=== PATIENT | male | born 1945 | race Asian ===

== ENCOUNTER 2018-02-12 17:03 | Inpatient (IN) | payer OTHER, MEDICARE ==
[2018-02-12] MEDS: SOD CHLORIDE 0.9% 600 ML IV (20:21)
[2018-02-12 20:22] LABS: ADD MAN DIFF? NO
[2018-02-12 20:23] LABS: BASOPHIL # 0.1 10^3/ul (0.0-0.1); BASOPHILS % 0.7 % (0.0-2.0); EOSINOPHILS % 0.3 % (0.0-7.0); HEMATOCRIT 39.8 % (42.0-52.0); HEMOGLOBIN 13.1 g/dl (14.0-18.0); LYMPHOCYTES # 2.1 10^3/ul (0.8-2.9); LYMPHOCYTES % 18.5 % (15.0-51.0); MEAN CORPUSCULAR HEMOGLOBIN 28.2 pg (29.0-33.0); MEAN CORPUSCULAR HGB CONC 32.9 g/dl (32.0-37.0); MEAN CORPUSCULAR VOLUME 85.8 fl (82.0-101.0); MEAN PLATELET VOLUME 12.4 fl (7.4-10.4); MONOCYTE # 0.9 10^3/ul (0.3-0.9); MONOCYTES % 7.4 % (0.0-11.0); NEUTROPHIL # 8.4 10^3/ul (1.6-7.5); NEUTROPHILS % 72.8 % (39.0-77.0); PLATELET COUNT 172 10^3/UL (140-415); RED BLOOD COUNT 4.64 10^6/ul (4.70-6.10); RED CELL DISTRIBUTION WIDTH 11.5 % (11.5-14.5)
[2018-02-12 20:23] LABS: WHITE BLOOD COUNT 11.5 10^3/ul (4.8-10.8)
[2018-02-12 20:30] LABS: ADD UMIC YES; UR ASCORBIC ACID NEGATIVE (NEGATIVE); UR BILIRUBIN (Dip) NEGATIVE (NEGATIVE); UR BLOOD (Dip) 1+ mg/dL (NEGATIVE); UR CLARITY CLEAR (CLEAR); UR COLOR YELLOW (YELLOW); UR GLUCOSE (Dip) NEGATIVE (NEGATIVE); UR KETONES (Dip) NEGATIVE (NEGATIVE); UR LEUKOCYTE ESTERASE (Dip) NEGATIVE Leu/ul (NEGATIVE); UR MUCUS FEW /HPF (NONE SEEN); UR NITRITE (Dip) NEGATIVE (NEGATIVE); UR RBC 4 /HPF (0-5); UR SPECIFIC GRAVITY (Dip) 1.019 (1.003-1.030); UR TOTAL PROTEIN (Dip) 1+ mg/dl (NEGATIVE); UR UROBILINOGEN (Dip) 1+ mg/dL (NEGATIVE); UR WBC 0 /HPF (0-5)
[2018-02-12 20:34] LABS: HEMOGLOBIN A1C 7.1 % (0-5.9)
[2018-02-12 20:44] LABS: INR 0.99; PROTIME 13.2 Sec (11.9-14.9)
[2018-02-12 20:47] LABS: ALANINE AMINOTRANSFERASE 35 IU/L (13-69); ALBUMIN 4.1 g/dl (3.3-4.9); ALKALINE PHOSPHATASE 61 IU/L (42-121); ANION GAP 14 (5-13); ASPARTATE AMINO TRANSFERASE 25 IU/L (15-46); BILIRUBIN,INDIRECT 0.7 mg/dl (0-1.1); BILIRUBIN,TOTAL 0.7 mg/dl (0.2-1.3); BLOOD UREA NITROGEN 20 mg/dl (7-20); CARBON DIOXIDE 24 mmol/L (21-31); CHLORIDE 95 mmol/L (97-110); CREATININE 1.32 mg/dl (0.61-1.24); GLUCOSE 191 mg/dl (70-220); MAGNESIUM 1.3 mg/dl (1.7-2.5); PHOSPHORUS 3.8 mg/dl (2.5-4.9); POTASSIUM 4.6 mmol/L (3.5-5.1); SODIUM 133 mmol/L (135-144); TOTAL PROTEIN 7.5 g/dl (6.1-8.1)
[2018-02-12 20:47] LABS: DIGOXIN 0.9 ng/ml (1.0-2.0)
[2018-02-12 20:56] LABS: TROPONIN-I 0.017 ng/ml (0.000-0.120)
[2018-02-12] MEDS ORDERED: DEXTROSE 50% 50 ML SYRINGE IV ×2 (23:00)
[2018-02-12] MEDS ORDERED: hydrALAzine 20 MG INJ IV (23:00)
[2018-02-12] MEDS ORDERED: GLUCOSE GEL 15 GRAM TUBE BUCCAL (23:00)
[2018-02-12] MEDS ORDERED: GLUCOSE GEL 15 GRAM TUBE PO ×2 (23:00)
[2018-02-12] MEDS ORDERED: GLUCAGON 1 MG INJ IM (23:00)
[2018-02-12] MEDS ORDERED: ONDANSETRON 4 MG INJ IV ×2 (23:00)
[2018-02-12] MEDS ORDERED: NACL 0.9% 3 ML SYG IV (23:00)
[2018-02-12] MEDS ORDERED: ACETAMINOPHEN 325 MG TAB PO (23:00)
[2018-02-12] MEDS ORDERED: DOCUSATE SODIUM 100 MG CAP PO (23:00)
[2018-02-12 23:36] LABS: MODE ROOM AIR; Sample Type Blood venous; Site VENOUS LINE; Venous COHb 0 %; Venous Fraction OxyHgb 27.6 %; Venous Oxygen Sat 27.9 mmHG (55.0-75.0); Venous Total Hemglobin 11.3 g/dl
[2018-02-12] MEDS: ASPIRIN 81 MG TAB PO (23:38)
[2018-02-13] MEDS: ACCU-CHEK XX (02:00)
[2018-02-13] MEDS ORDERED: HEPARIN 5,000 UNIT/0.5 ML VIAL ×2 (05:47→15:26)
[2018-02-13] MEDS: MAGNESIUM SULFATE 2 GM/50 ML 50 ML IVPB (05:53)
[2018-02-13 06:11] LABS: ADD MAN DIFF? NO
[2018-02-13 06:16] LABS: BASOPHIL # 0.1 10^3/ul (0.0-0.1); BASOPHILS % 0.6 % (0.0-2.0); EOSINOPHILS % 0.2 % (0.0-7.0); HEMATOCRIT 36.3 % (42.0-52.0); HEMOGLOBIN 12.2 g/dl (14.0-18.0); LYMPHOCYTES # 1.6 10^3/ul (0.8-2.9); LYMPHOCYTES % 14.8 % (15.0-51.0); MEAN CORPUSCULAR HEMOGLOBIN 28.2 pg (29.0-33.0); MEAN CORPUSCULAR HGB CONC 33.6 g/dl (32.0-37.0); MEAN CORPUSCULAR VOLUME 83.8 fl (82.0-101.0); MEAN PLATELET VOLUME 12.2 fl (7.4-10.4); MONOCYTE # 0.6 10^3/ul (0.3-0.9); MONOCYTES % 5.7 % (0.0-11.0); NEUTROPHIL # 8.7 10^3/ul (1.6-7.5); NEUTROPHILS % 78.2 % (39.0-77.0); PLATELET COUNT 155 10^3/UL (140-415); RED BLOOD COUNT 4.33 10^6/ul (4.70-6.10); RED CELL DISTRIBUTION WIDTH 11.6 % (11.5-14.5)
[2018-02-13 06:16] LABS: WHITE BLOOD COUNT 11.1 10^3/ul (4.8-10.8)
[2018-02-13] MEDS: HEPARIN SODIUM 5,000 UNIT/ML VIAL SC ×2 (06:30→15:36)
[2018-02-13 06:36] LABS: ALANINE AMINOTRANSFERASE 31 IU/L (13-69); ALBUMIN 3.7 g/dl (3.3-4.9); ALBUMIN/GLOBULIN RATIO 1.12; ALKALINE PHOSPHATASE 62 IU/L (42-121); ANION GAP 11 (5-13); ASPARTATE AMINO TRANSFERASE 22 IU/L (15-46); BLOOD UREA NITROGEN 17 mg/dl (7-20); CALCIUM 9.6 mg/dl (8.4-10.2); CARBON DIOXIDE 26 mmol/L (21-31); CHLORIDE 98 mmol/L (97-110); CHOL/HDL RATIO 3.3 RATIO; CHOLESTEROL 91 mg/dl (100-200); CREATININE 1.01 mg/dl (0.61-1.24); GLUCOSE 186 mg/dl (70-220); HDL CHOLESTEROL 27 mg/dl (31-75); LDL CHOLESTEROL,CALCULATED 49 mg/dl; POTASSIUM 3.9 mmol/L (3.5-5.1); SODIUM 135 mmol/L (135-144); TRIGLYCERIDES 76 mg/dl (0-149)
[2018-02-13 06:38] LABS: HEMOGLOBIN A1C 6.9 % (0-5.9)
[2018-02-13] MEDS: HALOPERIDOL 5 MG INJ IV (07:06)
[2018-02-13] MEDS: INSULIN ASPART [NOVOLOG] 3 ML PEN SC ×4 (08:25→22:03)
[2018-02-13] MEDS ORDERED: NON-FORMULARY/PATIENT OWN MED (Digoxin* (Digitek*) 0.125 MG) PO (09:00)
[2018-02-13] MEDS: ASPIRIN 81 MG TAB PO (09:44)
[2018-02-13] MEDS: METOPROLOL 50 MG TAB PO ×2 (10:04→22:01)
[2018-02-13] MEDS: DIGOXIN 0.125 MG TAB PO (12:27)
[2018-02-13] MEDS: HYDROCHLOROTHIAZIDE 12.5 MG CAP PO (18:40)
[2018-02-13] MEDS: DILTIAZEM (CD) 120 MG CAP PO (18:40)
[2018-02-13] MEDS: SOD CHLORIDE 0.9% 1,000 ML IV (20:25)
[2018-02-13] MEDS: ATORVASTATIN 40 MG TAB PO (22:00)
[2018-02-14] MEDS: ACCU-CHEK XX ×2 (01:17→20:36)
[2018-02-14] MEDS: SOD CHLORIDE 0.9% 1,000 ML IV ×2 (06:15→15:30)
[2018-02-14] MEDS: INSULIN ASPART [NOVOLOG] 3 ML PEN SC ×4 (07:35→20:36)
[2018-02-14] MEDS: METOPROLOL 50 MG TAB PO ×2 (09:00→20:34)
[2018-02-14] MEDS: DILTIAZEM (CD) 120 MG CAP PO (09:00)
[2018-02-14] MEDS: HYDROCHLOROTHIAZIDE 12.5 MG CAP PO (10:12)
[2018-02-14] MEDS ORDERED: MISCELLANEOUS IV SOLUTION 1,000 ML IV (12:00)
[2018-02-14] MEDS: LIDOCAINE 1% (MPF) 5 ML VIAL SC ×2 (12:30→13:00)
[2018-02-14 12:43] LABS: ANION GAP 11 (5-13); BLOOD UREA NITROGEN 17 mg/dl (7-20); CALCIUM 9.3 mg/dl (8.4-10.2); CARBON DIOXIDE 24 mmol/L (21-31); CHLORIDE 99 mmol/L (97-110); CREATININE 0.96 mg/dl (0.61-1.24); GLUCOSE 194 mg/dl (70-220); POTASSIUM 3.5 mmol/L (3.5-5.1); SODIUM 134 mmol/L (135-144)
[2018-02-14] MEDS: ACETAMINOPHEN 325 MG TAB PO ×2 (13:13→22:19)
[2018-02-14] MEDS: NACL 3% 500 ML IV (15:15)
[2018-02-14 15:55] LABS: ANION GAP 11 (5-13); BLOOD UREA NITROGEN 15 mg/dl (7-20); CARBON DIOXIDE 25 mmol/L (21-31); CHLORIDE 101 mmol/L (97-110); CREATININE 0.84 mg/dl (0.61-1.24); GLUCOSE 142 mg/dl (70-220); SODIUM 137 mmol/L (135-144)
[2018-02-14 15:57] LABS: POTASSIUM 3.3 mmol/L (3.5-5.1)
[2018-02-14] MEDS: DIGOXIN 0.125 MG TAB PO (16:09)
[2018-02-14] MEDS: POTASSIUM CHLORIDE (SR) 20 MEQ TAB PO (19:31)
[2018-02-14] MEDS: ATORVASTATIN 40 MG TAB PO (20:33)
[2018-02-14 20:41] LABS: ANION GAP 10 (5-13); BLOOD UREA NITROGEN 14 mg/dl (7-20); CARBON DIOXIDE 25 mmol/L (21-31); CHLORIDE 102 mmol/L (97-110); CREATININE 0.84 mg/dl (0.61-1.24); GLUCOSE 179 mg/dl (70-220); POTASSIUM 3.4 mmol/L (3.5-5.1); SODIUM 137 mmol/L (135-144)
[2018-02-15 01:01] LABS: ANION GAP 12 (5-13); BLOOD UREA NITROGEN 14 mg/dl (7-20); CALCIUM 9.7 mg/dl (8.4-10.2); CARBON DIOXIDE 25 mmol/L (21-31); CHLORIDE 100 mmol/L (97-110); CREATININE 0.97 mg/dl (0.61-1.24); GLUCOSE 167 mg/dl (70-220); POTASSIUM 4.1 mmol/L (3.5-5.1); SODIUM 137 mmol/L (135-144)
[2018-02-15] MEDS: SOD CHLORIDE 0.9% 1,000 ML IV ×2 (01:30→16:57)
[2018-02-15] MEDS ORDERED: HALOPERIDOL 5 MG INJ (01:46)
[2018-02-15] MEDS: HALOPERIDOL 5 MG INJ IV (01:53)
[2018-02-15] MEDS ORDERED: LORAZEPAM 2 MG INJ (03:27)
[2018-02-15] MEDS: LORAZEPAM 2 MG INJ IV (03:31)
[2018-02-15 05:36] LABS: ANION GAP 11 (5-13); BLOOD UREA NITROGEN 14 mg/dl (7-20); CALCIUM 9.2 mg/dl (8.4-10.2); CARBON DIOXIDE 23 mmol/L (21-31); CHLORIDE 104 mmol/L (97-110); CREATININE 0.85 mg/dl (0.61-1.24); GLUCOSE 193 mg/dl (70-220); POTASSIUM 3.9 mmol/L (3.5-5.1); SODIUM 138 mmol/L (135-144)
[2018-02-15] MEDS: INSULIN ASPART [NOVOLOG] 3 ML PEN SC ×4 (07:54→20:12)
[2018-02-15 08:59] LABS: ANION GAP 12 (5-13); BLOOD UREA NITROGEN 15 mg/dl (7-20); CALCIUM 9.3 mg/dl (8.4-10.2); CARBON DIOXIDE 25 mmol/L (21-31); CHLORIDE 103 mmol/L (97-110); GLUCOSE 170 mg/dl (70-220); POTASSIUM 3.9 mmol/L (3.5-5.1); SODIUM 140 mmol/L (135-144)
[2018-02-15] MEDS: hydrALAzine 20 MG INJ IV (11:50)
[2018-02-15 12:42] LABS: ANION GAP 10 (5-13); BLOOD UREA NITROGEN 14 mg/dl (7-20); CALCIUM 9.3 mg/dl (8.4-10.2); CARBON DIOXIDE 24 mmol/L (21-31); CHLORIDE 106 mmol/L (97-110); CREATININE 0.95 mg/dl (0.61-1.24); GLUCOSE 150 mg/dl (70-220); POTASSIUM 4.1 mmol/L (3.5-5.1); SODIUM 140 mmol/L (135-144)
[2018-02-15] MEDS: DIGOXIN 0.125 MG TAB PO ×2 (13:00→14:11)
[2018-02-15] MEDS: DILTIAZEM (CD) 120 MG CAP PO (13:04)
[2018-02-15] MEDS: METOPROLOL 50 MG TAB PO ×2 (13:05→20:12)
[2018-02-15 15:47] LABS: ANION GAP 12 (5-13); BLOOD UREA NITROGEN 14 mg/dl (7-20); CALCIUM 9.3 mg/dl (8.4-10.2); CARBON DIOXIDE 20 mmol/L (21-31); CHLORIDE 105 mmol/L (97-110); CREATININE 0.79 mg/dl (0.61-1.24); GLUCOSE 200 mg/dl (70-220); POTASSIUM 3.8 mmol/L (3.5-5.1); SODIUM 137 mmol/L (135-144)
[2018-02-15] MEDS: ATORVASTATIN 40 MG TAB PO (20:12)
[2018-02-15] MEDS: FAMOTIDINE 20 MG TAB PO (20:12)
[2018-02-15] MEDS: ACCU-CHEK XX (20:15)
[2018-02-15 21:13] LABS: ANION GAP 10 (5-13); BLOOD UREA NITROGEN 15 mg/dl (7-20); CALCIUM 9.3 mg/dl (8.4-10.2); CARBON DIOXIDE 23 mmol/L (21-31); CHLORIDE 105 mmol/L (97-110); CREATININE 0.94 mg/dl (0.61-1.24); GLUCOSE 138 mg/dl (70-220); POTASSIUM 3.8 mmol/L (3.5-5.1); SODIUM 138 mmol/L (135-144)
[2018-02-16] MEDS: ACETAMINOPHEN 325 MG TAB PO (00:29)
[2018-02-16] MEDS: SOD CHLORIDE 0.9% 1,000 ML IV ×2 (01:04→22:42)
[2018-02-16] MEDS: LORAZEPAM 2 MG INJ IV ×3 (05:11→18:14)
[2018-02-16 06:08] LABS: ADD MAN DIFF? NO
[2018-02-16 06:10] LABS: BASOPHIL # 0.1 10^3/ul (0.0-0.1); BASOPHILS % 0.8 % (0.0-2.0); EOSINOPHILS # 0.1 10^3/ul (0.0-0.5); EOSINOPHILS % 1.2 % (0.0-7.0); LYMPHOCYTES # 2.7 10^3/ul (0.8-2.9); LYMPHOCYTES % 24.7 % (15.0-51.0); MEAN CORPUSCULAR HEMOGLOBIN 28.4 pg (29.0-33.0); MEAN CORPUSCULAR HGB CONC 34.2 g/dl (32.0-37.0); MEAN CORPUSCULAR VOLUME 83.2 fl (82.0-101.0); MEAN PLATELET VOLUME 12.2 fl (7.4-10.4); MONOCYTE # 1.4 10^3/ul (0.3-0.9); MONOCYTES % 13.1 % (0.0-11.0); NEUTROPHIL # 6.6 10^3/ul (1.6-7.5); NEUTROPHILS % 59.8 % (39.0-77.0); PLATELET COUNT 175 10^3/UL (140-415); RED BLOOD COUNT 4.57 10^6/ul (4.70-6.10); RED CELL DISTRIBUTION WIDTH 11.9 % (11.5-14.5)
[2018-02-16 06:39] LABS: ALANINE AMINOTRANSFERASE 21 IU/L (13-69); ALBUMIN 3.9 g/dl (3.3-4.9); ALBUMIN/GLOBULIN RATIO 1.21; ALKALINE PHOSPHATASE 74 IU/L (42-121); ANION GAP 12 (5-13); ASPARTATE AMINO TRANSFERASE 23 IU/L (15-46); BLOOD UREA NITROGEN 19 mg/dl (7-20); CALCIUM 9.3 mg/dl (8.4-10.2); CARBON DIOXIDE 20 mmol/L (21-31); CHLORIDE 107 mmol/L (97-110); CREATININE 0.88 mg/dl (0.61-1.24); GLUCOSE 165 mg/dl (70-220); POTASSIUM 3.6 mmol/L (3.5-5.1); SODIUM 139 mmol/L (135-144); TOTAL PROTEIN 7.1 g/dl (6.1-8.1)
[2018-02-16 06:49] LABS: MAGNESIUM 1.7 mg/dl (1.7-2.5)
[2018-02-16 06:49] LABS: PHOSPHORUS 3.1 mg/dl (2.5-4.9)
[2018-02-16] MEDS: INSULIN ASPART [NOVOLOG] 3 ML PEN SC ×4 (07:55→21:00)
[2018-02-16] MEDS: POTASSIUM CHLORIDE (SR) 20 MEQ TAB PO (10:03)
[2018-02-16] MEDS: FAMOTIDINE 20 MG TAB PO ×2 (10:03→21:00)
[2018-02-16] MEDS: DILTIAZEM (CD) 120 MG CAP PO (10:04)
[2018-02-16] MEDS: METOPROLOL 50 MG TAB PO ×2 (10:04→21:00)
[2018-02-16] MEDS: MAGNESIUM SULFATE 2 GM/50 ML 50 ML IVPB (10:47)
[2018-02-16] MEDS: DIGOXIN 0.125 MG TAB PO (13:00)
[2018-02-16] MEDS: hydrALAzine 20 MG INJ IV (13:49)
[2018-02-16] MEDS: QUETIAPINE 25 MG TAB PO (21:00)
[2018-02-16] MEDS: ATORVASTATIN 40 MG TAB PO (21:00)
[2018-02-17] MEDS: ACCU-CHEK XX (02:00)
[2018-02-17 06:34] LABS: ANION GAP 14 (5-13); BLOOD UREA NITROGEN 13 mg/dl (7-20); CALCIUM 8.6 mg/dl (8.4-10.2); CARBON DIOXIDE 17 mmol/L (21-31); CHLORIDE 110 mmol/L (97-110); CREATININE 0.76 mg/dl (0.61-1.24); GLUCOSE 170 mg/dl (70-220); POTASSIUM 3.6 mmol/L (3.5-5.1); SODIUM 141 mmol/L (135-144)
[2018-02-17] MEDS: SOD CHLORIDE 0.9% 1,000 ML IV ×4 (07:49→21:27)
[2018-02-17] MEDS: METOPROLOL 50 MG TAB PO (08:22)
[2018-02-17] MEDS: DILTIAZEM (CD) 120 MG CAP PO (08:22)
[2018-02-17] MEDS: FAMOTIDINE 20 MG TAB PO (08:22)
[2018-02-17 08:26] LABS: MAGNESIUM 1.9 mg/dl (1.7-2.5)
[2018-02-17] MEDS: INSULIN ASPART [NOVOLOG] 3 ML PEN SC ×4 (08:27→21:00)
[2018-02-17] MEDS: DIGOXIN 500 MCG INJ IV (12:53)
[2018-02-17] MEDS: METOPROLOL 5 MG INJ IV ×2 (14:11→21:31)
[2018-02-17] MEDS: hydrALAzine 20 MG INJ IV (15:27)
[2018-02-17] MEDS: FAMOTIDINE 20 MG INJ IV (21:00)
[2018-02-17] MEDS: QUETIAPINE 25 MG TAB PO (21:27)
[2018-02-17] MEDS: ATORVASTATIN 40 MG TAB PO (21:27)
[2018-02-18] MEDS: ACCU-CHEK XX (02:00)
[2018-02-18] MEDS: METOPROLOL 5 MG INJ IV ×3 (06:00→21:47)
[2018-02-18 06:17] LABS: ADD MAN DIFF? NO
[2018-02-18 06:29] LABS: WHITE BLOOD COUNT 12.1 10^3/ul (4.8-10.8)
[2018-02-18 06:29] LABS: BASOPHILS % 0.3 % (0.0-2.0); HEMATOCRIT 39.4 % (42.0-52.0); HEMOGLOBIN 13.1 g/dl (14.0-18.0); LYMPHOCYTES # 0.8 10^3/ul (0.8-2.9); LYMPHOCYTES % 6.7 % (15.0-51.0); MEAN CORPUSCULAR HEMOGLOBIN 28.1 pg (29.0-33.0); MEAN CORPUSCULAR HGB CONC 33.2 g/dl (32.0-37.0); MEAN CORPUSCULAR VOLUME 84.5 fl (82.0-101.0); MEAN PLATELET VOLUME 12.4 fl (7.4-10.4); MONOCYTE # 1.1 10^3/ul (0.3-0.9); NEUTROPHIL # 10.1 10^3/ul (1.6-7.5); NEUTROPHILS % 83.5 % (39.0-77.0); PLATELET COUNT 194 10^3/UL (140-415); RED BLOOD COUNT 4.66 10^6/ul (4.70-6.10); RED CELL DISTRIBUTION WIDTH 11.9 % (11.5-14.5)
[2018-02-18 06:42] LABS: PHOSPHORUS 3.3 mg/dl (2.5-4.9)
[2018-02-18 06:42] LABS: MAGNESIUM 1.9 mg/dl (1.7-2.5)
[2018-02-18 06:44] LABS: ANION GAP 14 (5-13); BLOOD UREA NITROGEN 15 mg/dl (7-20); CALCIUM 9.1 mg/dl (8.4-10.2); CARBON DIOXIDE 16 mmol/L (21-31); CHLORIDE 113 mmol/L (97-110); CREATININE 0.76 mg/dl (0.61-1.24); GLUCOSE 185 mg/dl (70-220); SODIUM 143 mmol/L (135-144)
[2018-02-18] MEDS: INSULIN ASPART [NOVOLOG] 3 ML PEN SC ×4 (09:06→21:00)
[2018-02-18] MEDS: FAMOTIDINE 20 MG INJ IV ×2 (09:10→20:24)
[2018-02-18] MEDS: SOD CHLORIDE 0.9% 1,000 ML IV (09:14)
[2018-02-18] MEDS: QUETIAPINE 25 MG TAB PO ×2 (09:30→21:00)
[2018-02-18] MEDS: DILTIAZEM-D5W 125MG/125ML DRIP 125 ML IV (11:05)
[2018-02-18] MEDS: DIGOXIN 500 MCG INJ IV (12:45)
[2018-02-18] MEDS: LORAZEPAM 2 MG INJ IV ×2 (18:04→20:08)
[2018-02-18] MEDS: ATORVASTATIN 40 MG TAB PO (21:00)
[2018-02-18] MEDS: hydrALAzine 20 MG INJ IV (22:25)
[2018-02-19] MEDS: SOD CHLORIDE 0.9% 1,000 ML IV ×2 (00:51→12:26)
[2018-02-19] MEDS: ACCU-CHEK XX (02:00)
[2018-02-19] MEDS: METOPROLOL 5 MG INJ IV ×3 (05:22→21:40)
[2018-02-19] MEDS: DILTIAZEM-D5W 125MG/125ML DRIP 125 ML IV (05:25)
[2018-02-19 06:31] LABS: ADD MAN DIFF? NO
[2018-02-19 06:38] LABS: BASOPHILS % 0.2 % (0.0-2.0); HEMATOCRIT 40.3 % (42.0-52.0); HEMOGLOBIN 13.5 g/dl (14.0-18.0); LYMPHOCYTES # 0.6 10^3/ul (0.8-2.9); MEAN CORPUSCULAR HEMOGLOBIN 28.3 pg (29.0-33.0); MEAN CORPUSCULAR HGB CONC 33.5 g/dl (32.0-37.0); MEAN CORPUSCULAR VOLUME 84.5 fl (82.0-101.0); MEAN PLATELET VOLUME 12.1 fl (7.4-10.4); MONOCYTES % 7.9 % (0.0-11.0); NEUTROPHIL # 10.9 10^3/ul (1.6-7.5); NEUTROPHILS % 86.4 % (39.0-77.0); PLATELET COUNT 218 10^3/UL (140-415); RED BLOOD COUNT 4.77 10^6/ul (4.70-6.10); RED CELL DISTRIBUTION WIDTH 12.4 % (11.5-14.5)
[2018-02-19 06:38] LABS: WHITE BLOOD COUNT 12.7 10^3/ul (4.8-10.8)
[2018-02-19 07:13] LABS: PHOSPHORUS 3.7 mg/dl (2.5-4.9)
[2018-02-19 07:14] LABS: ANION GAP 15 (5-13); BLOOD UREA NITROGEN 18 mg/dl (7-20); CALCIUM 9.2 mg/dl (8.4-10.2); CARBON DIOXIDE 18 mmol/L (21-31); CHLORIDE 114 mmol/L (97-110); CREATININE 0.74 mg/dl (0.61-1.24); GLUCOSE 212 mg/dl (70-220); POTASSIUM 3.8 mmol/L (3.5-5.1); SODIUM 147 mmol/L (135-144)
[2018-02-19] MEDS: FAMOTIDINE 20 MG INJ IV ×2 (08:31→21:37)
[2018-02-19] MEDS: INSULIN ASPART [NOVOLOG] 3 ML PEN SC ×4 (08:31→22:06)
[2018-02-19] MEDS: QUETIAPINE 25 MG TAB PO ×3 (08:39→21:00)
[2018-02-19] MEDS: DIGOXIN 500 MCG INJ IV (12:20)
[2018-02-19] MEDS: ATORVASTATIN 40 MG TAB PO (21:00)
[2018-02-19] MEDS: hydrALAzine 20 MG INJ IV (23:27)
[2018-02-20] MEDS: ACCU-CHEK XX (02:00)
[2018-02-20] MEDS: SOD CHLORIDE 0.9% 1,000 ML IV ×2 (02:33→17:33)
[2018-02-20] MEDS: hydrALAzine 20 MG INJ IV (03:26)
[2018-02-20] MEDS: METOPROLOL 5 MG INJ IV ×3 (05:42→22:42)
[2018-02-20] MEDS: DILTIAZEM-D5W 125MG/125ML DRIP 125 ML IV (05:54)
[2018-02-20 07:33] LABS: ADD MAN DIFF? NO
[2018-02-20 07:44] LABS: WHITE BLOOD COUNT 13.4 10^3/ul (4.8-10.8)
[2018-02-20 07:44] LABS: BASOPHILS % 0.2 % (0.0-2.0); LYMPHOCYTES # 1.1 10^3/ul (0.8-2.9); LYMPHOCYTES % 7.9 % (15.0-51.0); MEAN CORPUSCULAR HGB CONC 33.3 g/dl (32.0-37.0); MEAN PLATELET VOLUME 11.8 fl (7.4-10.4); MONOCYTE # 1.3 10^3/ul (0.3-0.9); MONOCYTES % 9.6 % (0.0-11.0); NEUTROPHILS % 81.9 % (39.0-77.0); PLATELET COUNT 273 10^3/UL (140-415); RED CELL DISTRIBUTION WIDTH 12.3 % (11.5-14.5)
[2018-02-20 07:55] LABS: PHOSPHORUS 2.5 mg/dl (2.5-4.9)
[2018-02-20 07:55] LABS: MAGNESIUM 2.1 mg/dl (1.7-2.5)
[2018-02-20] MEDS: INSULIN ASPART [NOVOLOG] 3 ML PEN SC ×4 (07:57→20:03)
[2018-02-20 07:59] LABS: ANION GAP 14 (5-13); BLOOD UREA NITROGEN 21 mg/dl (7-20); CARBON DIOXIDE 17 mmol/L (21-31); CHLORIDE 121 mmol/L (97-110); CREATININE 0.79 mg/dl (0.61-1.24); GLUCOSE 258 mg/dl (70-220); POTASSIUM 3.3 mmol/L (3.5-5.1); SODIUM 152 mmol/L (135-144)
[2018-02-20] MEDS: FAMOTIDINE 20 MG INJ IV ×2 (08:31→20:04)
[2018-02-20] MEDS: QUETIAPINE 25 MG TAB PO ×2 (08:31→20:03)
[2018-02-20] MEDS: LORAZEPAM 2 MG INJ IV ×2 (11:58→14:34)
[2018-02-20] MEDS: DIGOXIN 500 MCG INJ IV (12:04)
[2018-02-20] MEDS: POTASSIUM CHLORIDE 20 MEQ POWDER FOR ORAL SOLN NGT (17:54)
[2018-02-20] MEDS: ATORVASTATIN 40 MG TAB PO (20:03)
[2018-02-21] MEDS: ACCU-CHEK XX (02:00)
[2018-02-21] MEDS ORDERED: PHENYLephrine 20MG IN 250 ML 250 ML (05:59)
[2018-02-21] MEDS: METOPROLOL 5 MG INJ IV ×3 (06:00→21:50)
[2018-02-21] MEDS ORDERED: NORepinephrine 8MG/250 ML (PMX 250 ML IV (06:00)
[2018-02-21] MEDS: SOD CHLORIDE 0.9% 1,000 ML IV ×3 (06:15→19:10)
[2018-02-21] MEDS: PROPOFOL 100 ML IV ×4 (06:29→21:40)
[2018-02-21 06:55] LABS: ADD MAN DIFF? NO
[2018-02-21] MEDS ORDERED: SUCCINYLCHOLINE CHLORIDE 100 MG/5 ML SYG IV (07:00)
[2018-02-21] MEDS ORDERED: ETOMIDATE 20 MG INJ (07:00)
[2018-02-21] MEDS ORDERED: EPINEPHrine 0.1 MG/ML SYG (07:00)
[2018-02-21 07:02] LABS: BASOPHILS % 0.2 % (0.0-2.0); HEMATOCRIT 42.5 % (42.0-52.0); HEMOGLOBIN 13.6 g/dl (14.0-18.0); LYMPHOCYTES # 0.7 10^3/ul (0.8-2.9); LYMPHOCYTES % 5.5 % (15.0-51.0); MEAN CORPUSCULAR HEMOGLOBIN 28.5 pg (29.0-33.0); MEAN CORPUSCULAR VOLUME 89.1 fl (82.0-101.0); MEAN PLATELET VOLUME 11.8 fl (7.4-10.4); MONOCYTES % 7.7 % (0.0-11.0); NEUTROPHIL # 10.8 10^3/ul (1.6-7.5); NEUTROPHILS % 85.7 % (39.0-77.0); PLATELET COUNT 231 10^3/UL (140-415); RED BLOOD COUNT 4.77 10^6/ul (4.70-6.10); RED CELL DISTRIBUTION WIDTH 13.1 % (11.5-14.5)
[2018-02-21 07:02] LABS: WHITE BLOOD COUNT 12.6 10^3/ul (4.8-10.8)
[2018-02-21 07:55] LABS: ANION GAP 17 (5-13); BLOOD UREA NITROGEN 38 mg/dl (7-20); CALCIUM 9.2 mg/dl (8.4-10.2); CARBON DIOXIDE 15 mmol/L (21-31); CHLORIDE 121 mmol/L (97-110); CREATININE 1.93 mg/dl (0.61-1.24); GLUCOSE 349 mg/dl (70-220); POTASSIUM 4.1 mmol/L (3.5-5.1); SODIUM 153 mmol/L (135-144)
[2018-02-21 08:08] LABS: AADO2 Arterial 363.8 mmHg (7.0-24.0); Allen Test ACCEPTAB; Arterial Base Excess -9.1 mmol/L (-3.0-3); Arterial Blood Gas Oxygen Sat 99.4 mmHG (95.0-100.0); Arterial COHb 0.3 % (0.0-3.0); Arterial Fraction of Oxyhgb 98.7 % (93.0-99.0); Arterial MetHb 0.4 % (0.0-1.5); Arterial Total Hemglobin 14.1 g/dl (12.0-18.0); Arterial pCO2 32.5 mmhg (35-45); MODE VENT - AC; Site Right Radial
[2018-02-21] MEDS: INSULIN ASPART [NOVOLOG] 3 ML PEN SC ×4 (08:15→21:15)
[2018-02-21] MEDS: PHENYLephrine 20MG IN 250 ML 250 ML IV (08:26)
[2018-02-21] MEDS: FAMOTIDINE 20 MG INJ IV ×2 (08:32→21:09)
[2018-02-21] MEDS: QUETIAPINE 25 MG TAB PO (08:45)
[2018-02-21 08:48] LABS: PHOSPHORUS 6.5 mg/dl (2.5-4.9)
[2018-02-21 08:48] LABS: MAGNESIUM 2.5 mg/dl (1.7-2.5)
[2018-02-21] MEDS: DILTIAZEM-D5W 125MG/125ML DRIP 125 ML IV (09:05)
[2018-02-21 09:34] LABS: BAND NEUTROPHILS #M 0.3 10^3/ul (0.0-0.6); BAND NEUTROPHILS % (M) 3 % (0-4); BURR CELLS 3+ (0-0); LYMPHOCYTES % (M) 8 % (15-51); MONOCYTE #M 0.6 10^3/ul (0.3-0.9); MONOCYTES % (M) 5 % (0-11); PLATELET ESTIMATE NORMAL; POIKILOCYTOSIS 3+ (0-0); SEG NEUT #M 10.6 10^3/ul (1.6-7.5); SEGMENTED NEUTROPHILS (M) % 84 % (39-77)
[2018-02-21 09:56] LABS: DIGOXIN 0.7 ng/ml (1.0-2.0)
[2018-02-21] MEDS: PHENYLephrine 40 MG in DEXTROSE 5% 496 ML IV ×2 (10:26→19:40)
[2018-02-21] MEDS: DIGOXIN 500 MCG INJ IV (13:49)
[2018-02-21 17:34] LABS: ANION GAP 8 (5-13); BLOOD UREA NITROGEN 42 mg/dl (7-20); CALCIUM 9.1 mg/dl (8.4-10.2); CARBON DIOXIDE 18 mmol/L (21-31); CHLORIDE 125 mmol/L (97-110); CREATININE 1.67 mg/dl (0.61-1.24); GLUCOSE 149 mg/dl (70-220); POTASSIUM 3.3 mmol/L (3.5-5.1); SODIUM 151 mmol/L (135-144)
[2018-02-21] MEDS: POTASSIUM CHLORIDE 20 MEQ POWDER FOR ORAL SOLN NGT (18:07)
[2018-02-21] MEDS: LIDOCAINE 1% (MPF) 5 ML VIAL SC (19:22)
[2018-02-21] MEDS: ATORVASTATIN 40 MG TAB PO (21:09)
[2018-02-22] MEDS: INSULIN ASPART [NOVOLOG] 3 ML PEN SC ×6 (01:23→23:38)
[2018-02-22] MEDS: PROPOFOL 100 ML IV (02:54)
[2018-02-22] MEDS: PHENYLephrine 40 MG in DEXTROSE 5% 496 ML IV (03:29)
[2018-02-22 05:12] LABS: ADD MAN DIFF? NO
[2018-02-22 05:19] LABS: WHITE BLOOD COUNT 10.9 10^3/ul (4.8-10.8)
[2018-02-22 05:19] LABS: BASOPHILS % 0.2 % (0.0-2.0); EOSINOPHILS % 0.1 % (0.0-7.0); HEMATOCRIT 36.3 % (42.0-52.0); HEMOGLOBIN 11.7 g/dl (14.0-18.0); LYMPHOCYTES # 1.4 10^3/ul (0.8-2.9); LYMPHOCYTES % 12.4 % (15.0-51.0); MEAN CORPUSCULAR HEMOGLOBIN 28.1 pg (29.0-33.0); MEAN CORPUSCULAR HGB CONC 32.2 g/dl (32.0-37.0); MEAN CORPUSCULAR VOLUME 87.3 fl (82.0-101.0); MONOCYTE # 0.9 10^3/ul (0.3-0.9); MONOCYTES % 7.8 % (0.0-11.0); NEUTROPHIL # 8.7 10^3/ul (1.6-7.5); NEUTROPHILS % 79.2 % (39.0-77.0); PLATELET COUNT 225 10^3/UL (140-415); POSITIVE DIFF @See below; RED BLOOD COUNT 4.16 10^6/ul (4.70-6.10)
[2018-02-22] MEDS: METOPROLOL 5 MG INJ IV ×3 (05:36→21:04)
[2018-02-22 05:44] LABS: ANION GAP 8 (5-13); BLOOD UREA NITROGEN 36 mg/dl (7-20); CALCIUM 8.8 mg/dl (8.4-10.2); CARBON DIOXIDE 17 mmol/L (21-31); CHLORIDE 124 mmol/L (97-110); CREATININE 1.52 mg/dl (0.61-1.24); GLUCOSE 144 mg/dl (70-220); POTASSIUM 3.7 mmol/L (3.5-5.1); SODIUM 149 mmol/L (135-144)
[2018-02-22 06:04] LABS: MAGNESIUM 2.1 mg/dl (1.7-2.5)
[2018-02-22 06:04] LABS: PHOSPHORUS 2.3 mg/dl (2.5-4.9)
[2018-02-22] MEDS: SOD CHLORIDE 0.9% 1,000 ML IV ×2 (07:41→20:54)
[2018-02-22] MEDS: DILTIAZEM-D5W 125MG/125ML DRIP 125 ML IV (09:30)
[2018-02-22] MEDS: FAMOTIDINE 20 MG INJ IV ×2 (09:36→20:13)
[2018-02-22 09:55] LABS: ANISOCYTOSIS 1+ (0-0); BAND NEUTROPHILS % (M) 19 % (0-4); BURR CELLS 2+ (0-0); GIANT THROMBO% (M) 1 % (0-0); LYMPHOCYTES #M 2.6 10^3/ul (0.8-2.9); LYMPHOCYTES % (M) 24 % (15-51); MICROCYTOSIS 1+ (0-0); MONOCYTE #M 0.5 10^3/ul (0.3-0.9); MONOCYTES % (M) 5 % (0-11); PLATELET ESTIMATE NORMAL; POIKILOCYTOSIS 3+ (0-0); SEG NEUT #M 5.9 10^3/ul (1.6-7.5); SEGMENTED NEUTROPHILS (M) % 52 % (39-77); SMUDGE%M 18 % (0-0)
[2018-02-22] MEDS: morphine 2 MG INJ IV ×3 (11:19→22:40)
[2018-02-22] MEDS ORDERED: DIGOXIN 500 MCG INJ IV (13:00)
[2018-02-22] MEDS: POTASSIUM CHLORIDE 20 MEQ POWDER FOR ORAL SOLN NGT (13:01)
[2018-02-22] MEDS: DIGOXIN 500 MCG INJ IV ×2 (13:01)
[2018-02-22] MEDS: ATORVASTATIN 40 MG TAB PO (20:13)
[2018-02-22] MEDS: INSULIN GLARGINE [LANTus] (100 UNITS/ML) SYG SC (20:51)
[2018-02-22] MEDS: hydrALAzine 20 MG INJ IV (22:04)
[2018-02-22] MEDS: LORAZEPAM 2 MG INJ IV (23:23)
[2018-02-23] MEDS ORDERED: ACCU-CHEK XX (02:00)
[2018-02-23] MEDS: PROPOFOL 100 ML IV ×2 (04:10→17:32)
[2018-02-23] MEDS: DILTIAZEM-D5W 125MG/125ML DRIP 125 ML IV (04:16)
[2018-02-23 05:03] LABS: ADD MAN DIFF? NO
[2018-02-23 05:06] LABS: WHITE BLOOD COUNT 10.1 10^3/ul (4.8-10.8)
[2018-02-23 05:06] LABS: BASOPHILS % 0.2 % (0.0-2.0); EOSINOPHILS % 0.3 % (0.0-7.0); HEMATOCRIT 37.5 % (42.0-52.0); HEMOGLOBIN 12.4 g/dl (14.0-18.0); LYMPHOCYTES # 1.4 10^3/ul (0.8-2.9); LYMPHOCYTES % 13.6 % (15.0-51.0); MEAN CORPUSCULAR HEMOGLOBIN 28.3 pg (29.0-33.0); MEAN CORPUSCULAR HGB CONC 33.1 g/dl (32.0-37.0); MEAN CORPUSCULAR VOLUME 85.6 fl (82.0-101.0); MEAN PLATELET VOLUME 12.1 fl (7.4-10.4); MONOCYTES % 10.1 % (0.0-11.0); NEUTROPHIL # 7.6 10^3/ul (1.6-7.5); NEUTROPHILS % 75.2 % (39.0-77.0); PLATELET COUNT 176 10^3/UL (140-415); POSITIVE DIFF @See below; RED BLOOD COUNT 4.38 10^6/ul (4.70-6.10); RED CELL DISTRIBUTION WIDTH 12.8 % (11.5-14.5)
[2018-02-23] MEDS: morphine 2 MG INJ IV ×3 (05:31→23:29)
[2018-02-23 05:34] LABS: ANION GAP 7 (5-13); BLOOD UREA NITROGEN 30 mg/dl (7-20); CALCIUM 8.5 mg/dl (8.4-10.2); CARBON DIOXIDE 18 mmol/L (21-31); CHLORIDE 120 mmol/L (97-110); CREATININE 1.11 mg/dl (0.61-1.24); GLUCOSE 237 mg/dl (70-220); POTASSIUM 4.1 mmol/L (3.5-5.1); SODIUM 145 mmol/L (135-144)
[2018-02-23] MEDS: METOPROLOL 5 MG INJ IV ×3 (06:02→21:46)
[2018-02-23] MEDS: INSULIN ASPART [NOVOLOG] 3 ML PEN SC ×6 (06:06→23:55)
[2018-02-23 07:42] LABS: AADO2 Arterial 118.3 mmHg (7.0-24.0); Allen Test ACCEPTAB; Arterial Base Excess -3.4 mmol/L (-3.0-3); Arterial COHb 0.4 % (0.0-3.0); Arterial Fraction of Oxyhgb 94.3 % (93.0-99.0); Arterial HCO3 18.2 mmol/L (22.0-26.0); Arterial MetHb 0.3 % (0.0-1.5); Arterial Total Hemglobin 13.4 g/dl (12.0-18.0); Arterial pCO2 24.5 mmhg (35-45); MODE VENT - AC; Site Right Radial
[2018-02-23] MEDS: FAMOTIDINE 20 MG INJ IV (08:02)
[2018-02-23] MEDS: ACETAMINOPHEN 325 MG TAB PO ×2 (08:06→17:41)
[2018-02-23] MEDS: SOD CHLORIDE 0.9% 1,000 ML IV ×2 (10:21→23:31)
[2018-02-23] MEDS: DILTIAZEM 60 MG TAB NGT ×3 (12:00→23:30)
[2018-02-23] MEDS: DIGOXIN 500 MCG INJ IV (12:41)
[2018-02-23 16:52] LABS: ADD UMIC YES; UR ASCORBIC ACID NEGATIVE (NEGATIVE); UR BACTERIA FEW /HPF (NONE SEEN); UR BILIRUBIN (Dip) NEGATIVE (NEGATIVE); UR BLOOD (Dip) 1+ mg/dL (NEGATIVE); UR CLARITY CLEAR (CLEAR); UR COLOR YELLOW (YELLOW); UR GLUCOSE (Dip) 3+ mg/dL (NEGATIVE); UR KETONES (Dip) NEGATIVE (NEGATIVE); UR LEUKOCYTE ESTERASE (Dip) NEGATIVE Leu/ul (NEGATIVE); UR NITRITE (Dip) NEGATIVE (NEGATIVE); UR RBC 38 /HPF (0-5); UR SPECIFIC GRAVITY (Dip) 1.018 (1.003-1.030); UR TOTAL PROTEIN (Dip) 1+ mg/dl (NEGATIVE); UR UROBILINOGEN (Dip) 2+ mg/dL (NEGATIVE); UR WBC 2 /HPF (0-5)
[2018-02-23] MEDS: INSULIN GLARGINE [LANTus] (100 UNITS/ML) SYG SC (20:29)
[2018-02-23] MEDS: FAMOTIDINE 20 MG TAB NGT (21:46)
[2018-02-23] MEDS: ATORVASTATIN 40 MG TAB PO (21:47)
[2018-02-24] MEDS: LORAZEPAM 2 MG INJ IV (03:08)
[2018-02-24] MEDS: PROPOFOL 100 ML IV ×2 (03:14→18:00)
[2018-02-24 05:00] LABS: ADD MAN DIFF? NO
[2018-02-24 05:04] LABS: WHITE BLOOD COUNT 9.4 10^3/ul (4.8-10.8)
[2018-02-24 05:04] LABS: ABNORMAL IP MESSAGE 1; BASOPHILS % 0.2 % (0.0-2.0); EOSINOPHILS # 0.1 10^3/ul (0.0-0.5); EOSINOPHILS % 0.7 % (0.0-7.0); HEMATOCRIT 32.4 % (42.0-52.0); HEMOGLOBIN 10.5 g/dl (14.0-18.0); LYMPHOCYTES # 1.1 10^3/ul (0.8-2.9); LYMPHOCYTES % 11.2 % (15.0-51.0); MEAN CORPUSCULAR HGB CONC 32.4 g/dl (32.0-37.0); MEAN CORPUSCULAR VOLUME 86.4 fl (82.0-101.0); MEAN PLATELET VOLUME 11.7 fl (7.4-10.4); MONOCYTES % 10.2 % (0.0-11.0); NEUTROPHIL # 7.3 10^3/ul (1.6-7.5); NEUTROPHILS % 77.3 % (39.0-77.0); PLATELET COUNT 149 10^3/UL (140-415); POSITIVE DIFF @See below; RED BLOOD COUNT 3.75 10^6/ul (4.70-6.10); RED CELL DISTRIBUTION WIDTH 12.5 % (11.5-14.5)
[2018-02-24] MEDS: METOPROLOL 5 MG INJ IV ×3 (05:06→21:01)
[2018-02-24] MEDS: DILTIAZEM 60 MG TAB NGT ×3 (05:07→18:25)
[2018-02-24] MEDS: INSULIN ASPART [NOVOLOG] 3 ML PEN SC (05:19)
[2018-02-24 05:23] LABS: ANION GAP 9 (5-13); BLOOD UREA NITROGEN 29 mg/dl (7-20); CALCIUM 8.3 mg/dl (8.4-10.2); CARBON DIOXIDE 21 mmol/L (21-31); CHLORIDE 115 mmol/L (97-110); CREATININE 1.07 mg/dl (0.61-1.24); GLUCOSE 221 mg/dl (70-220); POTASSIUM 3.6 mmol/L (3.5-5.1); SODIUM 145 mmol/L (135-144)
[2018-02-24] MEDS: DILTIAZEM-D5W 125MG/125ML DRIP 125 ML IV (08:20)
[2018-02-24] MEDS: FAMOTIDINE 20 MG TAB NGT ×2 (08:20→20:58)
[2018-02-24 08:25] LABS: BAND NEUTROPHILS #M 2.7 10^3/ul (0.0-0.6); BAND NEUTROPHILS % (M) 29 % (0-4); BURR CELLS 1+ (0-0); EOSINOPHILS % (M) 1 % (0-7); GIANT THROMBO% (M) 1 % (0-0); LYMPHOCYTES #M 0.4 10^3/ul (0.8-2.9); LYMPHOCYTES % (M) 5 % (15-51); MONOCYTE #M 1.2 10^3/ul (0.3-0.9); MONOCYTES % (M) 13 % (0-11); PLATELET ESTIMATE DECREASED; POIKILOCYTOSIS 2+ (0-0); REACTIVE LYMPHOCYTES% (M) 1 % (0-0); SEGMENTED NEUTROPHILS (M) % 51 % (39-77); SMUDGE%M 5 % (0-0)
[2018-02-24] MEDS ORDERED: DEXTROSE 50% 50 ML SYRINGE IV ×4 (08:30→21:30)
[2018-02-24] MEDS: ACCU-CHEK XX ×14 (08:58→23:16)
[2018-02-24] MEDS ORDERED: VANCOMYCIN IV PER PHARMACY XX (09:30)
[2018-02-24] MEDS: CEFEPIME 2GM/50 ML (PMX) 50 ML IVPB ×2 (11:00→20:58)
[2018-02-24] MEDS: VANCOMYCIN 1.25 GM in SOD CHLORIDE 0.9% 250 ML IVPB (11:11)
[2018-02-24] MEDS: INSULIN HUMAN REGULAR 100 UNIT in SOD CHLORIDE 0.9% 99 ML IV (11:17)
[2018-02-24] MEDS: DIGOXIN 500 MCG INJ IV (12:33)
[2018-02-24] MEDS: SOD CHLORIDE 0.9% 1,000 ML IV (13:23)
[2018-02-24] MEDS: hydrALAzine 20 MG INJ IV (18:10)
[2018-02-24] MEDS: ATORVASTATIN 40 MG TAB PO (20:59)
[2018-02-24] MEDS ORDERED: GLUCOSE GEL 15 GRAM TUBE BUCCAL (21:30)
[2018-02-24] MEDS ORDERED: GLUCOSE GEL 15 GRAM TUBE PO ×2 (21:30)
[2018-02-24] MEDS ORDERED: GLUCAGON 1 MG INJ IM (21:30)
[2018-02-24] MEDS: morphine 2 MG INJ IV (22:28)
[2018-02-24] MEDS: INSULIN GLARGINE [LANTus] (100 UNITS/ML) SYG SC (23:12)
[2018-02-25] MEDS: DILTIAZEM 60 MG TAB NGT ×3 (00:55→11:01)
[2018-02-25] MEDS: PROPOFOL 100 ML IV (03:20)
[2018-02-25] MEDS: SOD CHLORIDE 0.9% 1,000 ML IV (05:00)
[2018-02-25] MEDS: ACCU-CHEK XX (05:01)
[2018-02-25] MEDS: METOPROLOL 5 MG INJ IV (05:01)
[2018-02-25 05:15] LABS: ADD MAN DIFF? NO
[2018-02-25 05:25] LABS: WHITE BLOOD COUNT 10.1 10^3/ul (4.8-10.8)
[2018-02-25 05:25] LABS: BASOPHILS % 0.2 % (0.0-2.0); EOSINOPHILS # 0.2 10^3/ul (0.0-0.5); EOSINOPHILS % 1.6 % (0.0-7.0); HEMATOCRIT 32.9 % (42.0-52.0); HEMOGLOBIN 10.8 g/dl (14.0-18.0); LYMPHOCYTES # 1.1 10^3/ul (0.8-2.9); LYMPHOCYTES % 10.9 % (15.0-51.0); MEAN CORPUSCULAR HEMOGLOBIN 28.3 pg (29.0-33.0); MEAN CORPUSCULAR HGB CONC 32.8 g/dl (32.0-37.0); MEAN CORPUSCULAR VOLUME 86.1 fl (82.0-101.0); MEAN PLATELET VOLUME 12.7 fl (7.4-10.4); NEUTROPHIL # 7.8 10^3/ul (1.6-7.5); NEUTROPHILS % 76.8 % (39.0-77.0); PLATELET COUNT 173 10^3/UL (140-415); POSITIVE DIFF @See below; RED BLOOD COUNT 3.82 10^6/ul (4.70-6.10); RED CELL DISTRIBUTION WIDTH 12.7 % (11.5-14.5)
[2018-02-25 05:54] LABS: ANION GAP 7 (5-13); BLOOD UREA NITROGEN 30 mg/dl (7-20); CALCIUM 8.4 mg/dl (8.4-10.2); CARBON DIOXIDE 23 mmol/L (21-31); CHLORIDE 112 mmol/L (97-110); CREATININE 1.06 mg/dl (0.61-1.24); GLUCOSE 237 mg/dl (70-220); POTASSIUM 3.3 mmol/L (3.5-5.1); SODIUM 142 mmol/L (135-144)
[2018-02-25] MEDS: POTASSIUM CHLORIDE 20 MEQ POWDER FOR ORAL SOLN NGT ×2 (07:57→09:36)
[2018-02-25] MEDS: FAMOTIDINE 20 MG TAB NGT (07:57)
[2018-02-25] MEDS: CEFEPIME 2GM/50 ML (PMX) 50 ML IVPB (08:02)
[2018-02-25] MEDS: DILTIAZEM-D5W 125MG/125ML DRIP 125 ML IV (08:03)
[2018-02-25] MEDS: INSULIN ASPART [NOVOLOG] 3 ML PEN SC ×2 (09:38→09:39)
[2018-02-25] MEDS: VANCOMYCIN 1 GM 250 ML IVPB (10:57)
[2018-02-25 11:26] LABS: ANISOCYTOSIS 1+ (0-0); BAND NEUTROPHILS % (M) 30 % (0-4); BURR CELLS 3+ (0-0); EOSINOPHILS % (M) 3 % (0-7); LYMPHOCYTES #M 0.5 10^3/ul (0.8-2.9); LYMPHOCYTES % (M) 5 % (15-51); MICROCYTOSIS 1+ (0-0); MONOCYTE #M 0.9 10^3/ul (0.3-0.9); MONOCYTES % (M) 9 % (0-11); PLATELET ESTIMATE NORMAL; POIKILOCYTOSIS 3+ (0-0); SEG NEUT #M 5.7 10^3/ul (1.6-7.5); SEGMENTED NEUTROPHILS (M) % 53 % (39-77); SMUDGE%M 8 % (0-0); SPHEROCYTES 1+ (0-0)
[2018-02-25] MEDS ORDERED: DIMETHICONE STICK TOP ×2 (14:00)
[2018-02-25] MEDS ORDERED: LORAZEPAM 2 MG INJ IV (14:00)
[2018-02-25] MEDS ORDERED: ARTIFICIAL TEARS 15 ML OPH BOTH EYES ×2 (14:00)
[2018-02-25] MEDS ORDERED: ONDANSETRON 4 MG INJ IV (14:00)
[2018-02-25] MEDS: morphine (DRIP) 100 MG/100 ML 100 ML IV (16:47)
[2018-02-25] MEDS ORDERED: morphine 2 MG INJ IV (18:30)
[2018-02-26] MEDS ORDERED: ACCU-CHEK XX (02:00)
[2018-02-26] MEDS ORDERED: morphine 2 MG INJ IV (08:00)
[2018-02-26] MEDS: morphine (DRIP) 100 MG/100 ML 100 ML IV ×2 (10:38→13:59)
[2018-02-26] MEDS: LORAZEPAM 2 MG INJ IV ×2 (11:32→14:34)
[2018-02-26] MEDS: morphine 2 MG INJ IV (13:51)
[2018-02-26] MEDS ORDERED: morphine 10 MG INJ IV (16:00)
[2018-02-26] MEDS ORDERED: LORAZEPAM 2 MG INJ IV (16:30)
== END 2018-02-26 16:25 | disposition expired | DRG 64 ==
LOC: TEL 22:37 → ICU 02-14 16:11 → TEL 02-16 00:42 → ICU 02-21 05:49 → E/R 17:03 → PP2 02-26 15:37 → ICU 02-13 19:50
PROC: 02HV33Z Insertion of Infusion Device into Superior Vena Cava, Percutaneous Approach (ICD-10-PCS; 2018-02-14)
PROC: 5A1955Z Respiratory Ventilation, Greater than 96 Consecutive Hours (ICD-10-PCS; principal; 2018-02-21)
PROC: 0BH17EZ Insertion of Endotracheal Airway into Trachea, Via Natural or Artificial Opening (ICD-10-PCS; 2018-02-21)
PROC: 5A12012 Performance of Cardiac Output, Single, Manual (ICD-10-PCS; 2018-02-21)
PROC: 02HV33Z Insertion of Infusion Device into Superior Vena Cava, Percutaneous Approach (ICD-10-PCS; 2018-02-21)
DX: I63.511 Cerebral infarction due to unspecified occlusion or stenosis of right middle cerebral artery (principal); I61.8 Other nontraumatic intracerebral hemorrhage; G93.6 Cerebral edema; J96.01 Acute respiratory failure with hypoxia; A41.9 Sepsis, unspecified organism; R65.21 Severe sepsis with septic shock; G93.49 Other encephalopathy; E87.0 Hyperosmolality and hypernatremia; E11.9 Type 2 diabetes mellitus without complications; E78.5 Hyperlipidemia, unspecified; I10 Essential (primary) hypertension; I46.8 Cardiac arrest due to other underlying condition; I48.2 Chronic atrial fibrillation; N28.9 Disorder of kidney and ureter, unspecified; R13.10 Dysphagia, unspecified; Z66 Do not resuscitate; Z51.5 Encounter for palliative care; Z79.84 Long term (current) use of oral hypoglycemic drugs
CPT/HCPCS: 36415; 36569; 36600; 70450; 70544; 70553; 71045; 76937; 80048; 80053; 80061; 80162; 81001; 82803; 82962; 83036; 83735; 84100; 84484; 85025; 85610; 85730; 87040; 87081; 92526; 92610; 92950; 93005; 93306; 93880; 94002; 94003; 94770; 95819; 96360; 96361; 97162; 97167; 97530; 97535; 99285-25